=== PATIENT | female | born 1950 ===

== ENCOUNTER 2018-07-25 00:05 | Outpatient (CLI) | payer MEDICARE, BC | END 2018-07-25 23:59 | disposition home or self-care (01) | LOC: DIABETIC 00:05 | PROVIDERS: ATTEND Internal Medicine | DX: E11.9 Type 2 diabetes mellitus without complications (principal); Z79.82 Long term (current) use of aspirin | CPT/HCPCS: G0108 ==

== ENCOUNTER 2018-10-26 02:26 | Outpatient (CLI) | payer MEDICARE, BC | END 2018-10-26 23:59 | disposition home or self-care (01) | LOC: DIABETIC 02:26 | PROVIDERS: ATTEND Internal Medicine | DX: E11.9 Type 2 diabetes mellitus without complications (principal) | CPT/HCPCS: G0108 ==

== ENCOUNTER 2019-03-07 00:19 | Outpatient (CLI) | payer MEDICARE, BC | END 2019-03-07 23:59 | disposition home or self-care (01) | LOC: DIABETIC 00:19 | PROVIDERS: ATTEND Internal Medicine | DX: E11.9 Type 2 diabetes mellitus without complications (principal); Z79.82 Long term (current) use of aspirin; Z79.899 Other long term (current) drug therapy | CPT/HCPCS: G0108 ==

== ENCOUNTER 2019-07-04 00:38 | Outpatient (CLI) | payer MEDICARE, BC | END 2019-07-04 23:59 | disposition home or self-care (01) | LOC: DIABETIC 00:38 | PROVIDERS: ATTEND Internal Medicine | DX: E11.9 Type 2 diabetes mellitus without complications (principal) | CPT/HCPCS: G0108 ==